=== PATIENT | male | born 1960 | race Caucasian/White ===

== ENCOUNTER 2018-07-08 20:48 | Emergency (ER) | payer BC ==
[2018-07-08] MEDS ORDERED: Ondansetron 4 MG/2 ML SDV IVPUSH ONE (21:39)
[2018-07-08] MEDS ORDERED: LORazepam 2 MG/ML SDV IVPUSH ONE (21:39)
[2018-07-08] MEDS: Sodium Chloride 0.9% 10 ML Syringe FLUSH PRN ×2 (21:47→21:49)
--- NOTE | 2018-07-08 22:40 | EDM.PDOC ---
ED HPI GENERAL MEDICAL PROBLEM - General Chief Complaint: Cardiovascular Problem Stated Complaint: HIGH BP/STOMACH UPSET/SWEATING Time Seen by Provider: 07/08/18 21:09 Source of Information: Reports: Patient History Limitations: Reports: No Limitations - History of Present Illness INITIAL COMMENTS - FREE TEXT/NARRATIVE: The patient presents with elevated blood pressure, shortness of breath, nausea and feeling hot and flushed. This all started a couple days ago with left shoulder pain and some numbness in his fingers. He did not injure his shoulder in any way that he knows. He has no chest pain. This evening he had a beer and checked his blood pressure and it was elevated. He then felt flushed, nauseated, and had shortness or breath. He checked his blood pressure again and it was elevated even more. He also has a headache. He has no cough, chest pain, abdominal pain, dysuria, hematuria, weakness. He was anxious tonight and again when we did the EKG. Onset: Gradual Duration: Hour(s): Location: Reports: Head, Upper Extremity, Left (shoulder) Quality: Reports: Ache Severity: Mild Improves with: Reports: None Worsens with: Reports: None Associated Symptoms: Reports: Fever/Chills, Headaches, Nausea/Vomiting, Shortness of Breath. Denies: Chest Pain, Cough Headache Pain Score (Numeric/FACES): 4 - Related Data Allergies Allergy/AdvReac Type Severity Reaction Status Date / Time acetaminophen [From Percocet] Allergy Anxiety Verified 07/08/18 20:59 oxycodone [From Percocet] Allergy Anxiety Verified 07/08/18 20:59 Home Meds: Home Meds Allopurinol [Zyloprim] 300 mg PO DAILY 07/08/18 [History] Aspirin [Halfprin] 81 mg PO DAILY 07/08/18 [History] Levothyroxine 175 mcg PO DAILY 07/08/18 [History] Losartan/Hydrochlorothiazide [Losartan-HCTZ 100-25 MG] 1 tab PO DAILY 07/08/18 [ History] Metoprolol Succinate [Toprol XL] 25 mg PO DAILY 07/08/18 [History] Omeprazole 40 mg PO DAILY 07/08/18 [History] Simvastatin [Zocor] 40 mg PO BEDTIME 07/08/18 [History] amLODIPine [Norvasc] 10 mg PO DAILY 07/08/18 [History] Past Medical History Cardiovascular History: Reports: High Cholesterol, Hypertension Respiratory History: Reports: COPD Endocrine/Metabolic History: Reports: Hypothyroidism - Past Surgical History Musculoskeletal Surgical History: Reports: Knee Replacement Social & Family History - Tobacco Use Smoking Status *Q: Former Smoker Used Tobacco, but Quit: Yes Month/Year Tobacco Last Used: 1999 - Caffeine Use Caffeine Use: Reports: Soda - Recreational Drug Use Recreational Drug Use: No ED ROS GENERAL - Review of Systems Review Of Systems: See Below Constitutional: Reports: Fever, Chills HEENT: Reports: No Symptoms Respiratory: Reports: Shortness of Breath. Denies: Cough Cardiovascular: Reports: No Symptoms Endocrine: Reports: No Symptoms GI/Abdominal: Reports: Nausea. Denies: Abdominal Pain, Diarrhea, Vomiting : Reports: No Symptoms Musculoskeletal: Reports: Shoulder Pain (Left) ED EXAM, GENERAL - Physical Exam Exam: See Below Exam Limited By: No Limitations General Appearance: Alert, No Apparent Distress Ears: Normal External Exam Nose: Normal Inspection Head: Atraumatic, Normocephalic Neck: Normal Inspection Respiratory/Chest: No Respiratory Distress, Lungs Clear, Normal Breath Sounds Cardiovascular: Regular Rate, Rhythm, No Edema, No Murmur GI/Abdominal: Soft, Non-Tender, No Organomegaly, No Mass Back Exam: Normal Inspection Extremities: Normal Inspection EKG INTERPRETATION EKG Date: 07/08/18 Time: 21:12 Rhythm: Other (sinus tachycardia) Rate (Beats/Min): 101 [place]: LAD-Left [place] Deviation P-Wave: Present QRS: Normal ST-T: Normal QT: Prolonged (borderline) Course - Vital Signs Last Recorded V/S: Last Vital Signs Temp 99 F 07/08/18 21:01 Pulse 97 07/08/18 21:01 Resp 18 07/08/18 21:01 BP 171/81 H 07/08/18 21:01 Pulse Ox 98 07/08/18 21:01 - Orders/Labs/Meds Orders: Active Orders 24 hr Category Date Time Status Cardiac Monitoring [RC] . DIRECTED Care 07/08/18 21:26 Active EKG 12 Lead [EKG Documentation Completion] [RC] STAT Care 07/08/18 21:07 Active Peripheral IV Care [RC] . DIRECTED Care 07/08/18 21:26 Active Chest 1V Frontal [CR] Stat Exams 07/08/18 21:26 Taken Head wo Cont [CT] Stat Exams 07/08/18 21:26 Taken Sodium Chloride 0.9% [Saline Flush] Med 07/08/18 21:26 Active 10 ml FLUSH ASDIRECTED PRN Peripheral IV Insertion Adult [OM.PC] Stat Oth 07/08/18 21:26 Ordered Medication Orders Sodium Chloride (Saline Flush) 10 ml FLUSH ASDIRECTED PRN PRN Reason: Keep Vein Open Last Admin: 07/08/18 21:49 Dose: 10 ml Admin: 07/08/18 21:47 Dose: 10 ml Labs: Laboratory Tests 07/08/18 07/08/18 Range/Units 21:30 21:30 WBC 8.70 (4.23-9.07) K/mm3 RBC 4.87 (4.63-6.08) M/mm3 Hgb 15.8 (13.7-17.5) gm/L Hct 45.1 (40.1-51.0) % MCV 92.6 H (79.0-92.2) fl MCH 32.4 H (25.7-32.2) pg MCHC 35.0 (32.2-35.5) g/dl RDW Std Deviation 44.1 H (35.1-43.9) fL Plt Count 205 (163-337) K/mm3 MPV 10.2 (9.4-12.3) fl Neut % (Auto) 62.3 (34.0-67.9) % Lymph % (Auto) 23.6 (21.8-53.1) % [place] % (Auto) 11.5 (5.3-12.2) % Eos % (Auto) 2.1 (0.8-7.0) Baso % (Auto) 0.2 (0.1-1.2) % Neut # (Auto) 5.42 H (1.78-5.38) K/mm3 Lymph # (Auto) 2.05 (1.32-3.57) K/mm3 [place] # (Auto) 1.00 H (0.30-0.82) K/mm3 Eos # (Auto) 0.18 (0.04-0.54) K/mm3 Baso # (Auto) 0.02 (0.01-0.08) K/mm3 Sodium 136 (136-145) mEq/L Potassium 3.3 L (3.5-5.1) mEq/L Chloride 99 (98-107) mEq/L Carbon Dioxide 27 (21-32) mEq/L Anion Gap 13.3 (5-15) BUN 21 H (7-18) mg/dL Creatinine 1.3 (0.7-1.3) mg/dL Est Cr Clr Drug Dosing 63.45 mL/min Estimated GFR (MDRD) 57 (>60) mL/min BUN/Creatinine Ratio 16.2 (14-18) Glucose 199 H (74-106) mg/dL Calcium 9.5 (8.5-10.1) mg/dL Total Bilirubin 0.5 (0.2-1.0) mg/dL AST 51 H (15-37) U/L ALT 87 H (16-63) U/L Alkaline Phosphatase 111 (46-116) U/L Troponin I < 0.017 (0.00-0.056) ng/mL Total Protein 7.7 (6.4-8.2) g/dl Albumin 3.6 (3.4-5.0) g/dl Globulin 4.1 gm/dL Albumin/Globulin Ratio 0.9 L (1-2) Meds: Medications Generic Name Dose Route Start Last Admin Trade Name Freq PRN Reason Stop Dose Admin Sodium Chloride 10 ml 07/08/18 21:26 07/08/18 21:49 Saline Flush FLUSH 10 ml ASDIRECTED PRN Administration Keep Vein Open Discontinued Medications Generic Name Dose Route Start Last Admin Trade Name Frecesar PRN Reason Stop Dose Admin Lorazepam 1 mg 07/08/18 21:39 07/08/18 21:46 Ativan IVPUSH 07/08/18 21:40 1 mg ONETIME ONE Administration Ondansetron HCl 4 mg 07/08/18 21:39 07/08/18 21:46 Zofran IVPUSH 07/08/18 21:40 4 mg ONETIME ONE Administration - Re-Assessments/Exams Free Text/Narrative Re-Assessment/Exam: 07/08/18 22:40 I ordered an IV saline lock, EKG, CXR, CT of his head and labs. His EKG shows a sinus tachycardia with no acute changes. His CXR looks good. 07/08/18 22:42 His CBC looks good. His K was a little low at 3.3. His glucose is elevated at 199. His AST was elevated slightly at 51. His ALT was elevated at 87. His troponin is negative. His head CT shows nothing acute. He felt anxious again and more nauseated so I ordered zofran 4mg IV and ativan 1mg IV. 07/08/18 23:00 He feels much better. I do not think he had a stroke or an [place]. I will not increase his blood pressure meds at this time. I want him to be rechecked for the blood pressure and his blood glucose. Departure - Departure Time of Disposition: 23:05 Disposition: Home, Self-Care 01 Condition: Good Clinical Impression: Nausea Hypertension Qualifiers: Hypertension type: unspecified Qualified Code(s): I10 - Essential (primary) hypertension Left shoulder pain Qualifiers: Chronicity: acute Qualified Code(s): M25.512 - Pain in left shoulder Referrals: Rickey Trivedi MD [Primary Care Provider] - 1 Week Forms: ED Department Discharge Additional Instructions: Take your medication as prescribed. Have your blood sugar rechecked with Dr Ghotra. It was elevated at 199. Normal range is 80 to 100 here. Please return if you are worse such as chest pain, shortness of breath, numbness or weakness. - My Orders Last 24 Hours: My Active Orders 07/08/18 21:07 EKG 12 Lead [EKG Documentation Completion] [RC] STAT 07/08/18 21:26 Cardiac Monitoring [RC] . DIRECTED Peripheral IV Care [RC] . DIRECTED Chest 1V Frontal [CR] Stat Head wo Cont [CT] Stat Sodium Chloride 0.9% [Saline Flush] 10 ml FLUSH ASDIRECTED PRN Peripheral IV Insertion Adult [OM.PC] Stat - Assessment/Plan Last 24 Hours: My Active Orders 07/08/18 21:07 EKG 12 Lead [EKG Documentation Completion] [RC] STAT 07/08/18 21:26 Cardiac Monitoring [RC] . DIRECTED Peripheral IV Care [RC] . DIRECTED Chest 1V Frontal [CR] Stat Head wo Cont [CT] Stat Sodium Chloride 0.9% [Saline Flush] 10 ml FLUSH ASDIRECTED PRN Peripheral IV Insertion Adult [OM.PC] Stat
--- NOTE | 2018-07-09 11:50 | CR ---
Chest: Frontal view of the chest was obtained. Comparison: No prior chest x-ray. Old unhealed rib fracture is noted within the eighth rib. Old healed rib fracture is noted within the sixth and seventh ribs on the left side. Lungs are clear with no acute parenchymal change. Heart size and mediastinum are normal. Impression: 1. Rib fractures as noted above which appear old. 2. Nothing acute is seen on frontal chest x-ray. Diagnostic code #2
--- NOTE | 2018-07-09 12:56 | CT ---
Head CT Technique: Multiple axial sections through the brain were obtained. Intravenous contrast was not utilized. Comparison: No previous intracranial imaging. Findings: Ventricles along with basal cisterns and sulci over the convexities are within normal limits for the patient's age. No abnormal parenchymal densities are seen. No evidence of intracranial hemorrhage. No midline shift or mass effect is seen. Bone window settings were reviewed which show the visualized sinuses to appear clear. No acute calvarial abnormality is seen. Impression: 1. Nothing acute is seen on noncontrast head CT study. Diagnostic code #1 I agree with preliminary report from [facility], finalized on 07/08/18, 11:12 PM Central Time
== END 2018-07-08 23:17 | disposition home or self-care (01) ==
LOC: JD.ED 20:48
DX: R11.2 Nausea with vomiting, unspecified (principal); I10 Essential (primary) hypertension; E78.00 Pure hypercholesterolemia, unspecified; M25.512 Pain in left shoulder; J44.9 Chronic obstructive pulmonary disease, unspecified; E03.9 Hypothyroidism, unspecified; Z88.8 Allergy status to other drugs, medicaments and biological substances; Z79.899 Other long term (current) drug therapy; Z79.82 Long term (current) use of aspirin; Z87.891 Personal history of nicotine dependence
CPT/HCPCS: 36415; 70450; 71045; 80053; 84484; 85025; 93005; 96374; 96375; 99284; J2060; J2405; J7050; 93010